=== PATIENT | female | born 2000 | race Caucasian/White ===

== ENCOUNTER 2020-09-16 21:08 | Emergency (ER) | payer OTHER, SELFPAY ==
[2020-09-16 21:10] VITALS: BP 126/71; PULSE 96; RESP 12; TEMP 36.8; O2SAT 99; BMI 22.8
[2020-09-16 21:34] LABS: COVID19 -Nasal RAPID Negative (Negative)
--- NOTE | 2020-09-16 22:03 | ED.SOB ---
HPI - SOB/Dyspnea General Chief Complaint: Shortness of Breath/Dyspnea Stated Complaint: SOB past few days Time Seen by Provider: 09/16/20 21:14 Source: patient Mode of arrival: Ambulatory Limitations: no limitations History of Present Illness HPI Narrative: 20F without significant medical history presents for gradually worsening SOB over the past 3 days. She states initially she just noticed difficulty in breathing when she you laid flat, now it is more impressive and is worse with exertion as well. Additionally, she has developed some right lower chest pain that radiates to her back. She states that sharp and stabbing and worse with deep breath. She denies any fever chills. She has had no cough. She denies nausea, vomiting or diarrhea. She has had no recent injury or travel. She denies any history of blood clot. She does take control and though she does not smoke she does vape. A few days ago she had an episode of near syncope and had an evaluation at an outside facility. She'd not eaten and only consumed two cups of coffee prior to the event. She stood up, felt dizzy and light headed and was taken via EMS. She does report a HR of the 150s which had improved prior to arrival at the ED. She had reassuring labs, EKG and felt great after IV fluids and eating. MD Complaint: shortness of breath, pain with inspiration and chest pain Onset (ago): day(s) Severity: moderate Consistency/Duration: constant Relieving factors: rest Exacerbating factors: lying flat and exertion Associated symptoms: pain with inspiration Treatment prior to arrival: none Related Data Home oxygen amount: none Previous Rx's Medication Instructions Recorded doxycycline hyclate 100 mg PO BID #20 tab 09/16/20 Allergies Allergy/AdvReac Type Severity Reaction Status Date / Time No Known Drug Allergies Allergy Verified 09/16/20 21:14 Review of Systems Constitutional Constitutional: Denies chills, Denies fatigue, Denies fever(s), Denies frequent falls, Denies lethargy and Denies weakness Eyes Eyes: Denies change in vision, Denies eye discharge, Denies irritation and Denies loss of vision ENT Ears, Nose, Mouth, and Throat: Denies change in voice, Denies dizziness, Denies neck pain, Denies sore throat and Denies throat swelling Cardiovascular Cardiovascular: Denies chest pain, Denies irregular heart rhythm, Denies lightheadedness, Denies palpitations, Reports dyspnea, Denies dyspnea on exertion and Denies orthopnea Respiratory Respiratory: Denies cough, Reports pain on inspiration, Reports dyspnea, Denies dyspnea on exertion and Denies wheezing Gastrointestinal Gastrointestinal: Denies abdominal pain, Denies change in bowel habits, Denies diarrhea, Denies nausea and Denies vomiting Musculoskeletal Musculoskeletal: Denies neck pain and Denies numbness Integumentary/Breasts Skin/Breast: Denies pruritus, Denies erythema, Denies rash and Denies wounds Neurologic Neurologic: Denies behavioral changes, Denies confusion, Denies dizziness, Denies frequent falls, Denies loss of vision, Denies numbness and Denies weakness Psychiatric Psychiatric: Denies anxiety, Denies behavioral changes, Denies confusion, Denies depression, Denies homicidal ideation and Denies suicidal ideation Endocrine Endocrine: Denies fatigue, Denies flushing and Denies palpitations Hematologic/Lymphatic Hematologic/Lymphatic: Denies easy bruising Allergic/Immunologic Allergic/Immunologic: Denies urticaria, Denies throat swelling and Denies wheezing Patient History Social History Smoking Status: Current every day smoker Smoking Status: Current every day smoker tobacco type: vaping alcohol intake frequency: holidays/special occasions only Substance Use Type: does not use Exam Narrative Exam Narrative: GENERAL: [20] year old patient appears stated age. Well-nourished, well-developed patient, in mild distress. HEAD: Atraumatic. Normocephalic. EYES: Pupils equal round and reactive. Extraocular motions intact. No scleral icterus. No injection or drainage. ENT: Nose without bleeding, purulent drainage. Throat without erythema, tonsillar hypertrophy or exudate. Airway patent. NECK: Trachea midline. Non tender CARDIOVASCULAR: Regular rate and rhythm without murmurs, gallops, or rubs. RESPIRATORY: Clear to auscultation. Breath sounds equal bilaterally. No wheezes, rales, or rhonchi. GASTROINTESTINAL: Abdomen soft, non-tender, nondistended. EXTREMITIES: No edema or joint tenderness. BACK: Nontender without deformity or crepitance. No flank tenderness. NEURO: AOx3. SKIN: No rash or erythema of visible areas Initial Vital Signs Initial Vital Signs: Vital Signs Temperature 98.2 F 09/16/20 21:10 Pulse Rate 96 H 09/16/20 21:10 Respiratory Rate 12 09/16/20 21:10 Blood Pressure 126/71 09/16/20 21:10 Pulse Oximetry 99 09/16/20 21:10 Course Orders Ordered: ED Orders 09/16/20 21:13 COVID19 Stat 09/16/20 21:17 EKG-12 Lead Stat 09/16/20 22:15 XR chest 2V Stat 09/16/20 22:28 Basic Metabolic Panel Stat Complete Blood Count AUTO DIFF Stat NT-proBNP (BNP-Adult 18+) Stat Troponin & CK Cardiac Panel Stat 09/16/20 22:50 CT angio chest PE protocol Stat Discontinued Medications Albuterol (Albuterol Hfa 200 Puff/18 Gm Inh (Covid Pos/Vent Pts)) 2 puff INH NOW ONE Stop: 09/17/20 00:29 Last Admin: 09/17/20 00:29 Dose: 2 puff Documented by: CHON Doxycycline Hyclate (Doxycycline Hyclate 100 Mg Tablet) 100 mg PO NOW ONE Stop: 09/16/20 23:56 Last Admin: 09/17/20 00:12 Dose: 100 mg Documented by: SANDRAARTIN Sodium Chloride (Normal Saline 0.9%) 1,000 mls @ 125 mls/hr IV CONT JILL Last Infusion: 09/17/20 00:35 Dose: 0 mls/hr Documented by: Admin: 09/16/20 22:34 Dose: 125 mls/hr Documented by: WENDY Vital Signs Vital signs: Vital Signs - 8 hr 09/16/20 21:10 09/16/20 22:37 09/16/20 22:38 Temperature 98.2 F Pulse Rate 96 H 83 80 Respiratory Rate 12 16 Blood Pressure 126/71 113/68 Pulse Oximetry 99 99 99 09/16/20 23:07 09/16/20 23:30 09/17/20 00:00 Temperature Pulse Rate 93 H 80 87 Respiratory Rate Blood Pressure Pulse Oximetry 100 98 98 09/17/20 00:17 09/17/20 00:29 Temperature Pulse Rate 92 H 86 Respiratory Rate 14 Blood Pressure 108/71 Pulse Oximetry 98 98 MDM - SOB/Dyspnea Lab Data Result diagrams: 09/16/20 22:28 09/16/20 22:28 Labs: Lab Results 09/16/20 09/16/20 09/16/20 Range/Units 21:13 22:28 22:28 WBC 10.1 (4.5-11.0) X10^3/uL RBC 4.83 (4.0-5.2) X10^6/uL Hgb 14.5 (12.0-16.0) g/dL Hct 41.5 (36-46) % MCV 86.0 (80-100) fL MCH 30.0 (26-34) PG MCHC 34.8 (30-36) % RDW 12.1 (11.6-14.8) % Plt Count 293 (150-400) X10^3/uL Neut % (Auto) 48.6 L (50-75) % Lymph % (Auto) 43.0 H (25-40) % [place] % (Auto) 7.3 (3-14) % Eos % (Auto) 0.3 L (2-4) % Baso % (Auto) 0.8 (0-2) % Neut # (Auto) 4900 (7517-7897) /uL Lymph # (Auto) 4300 (8609-4702) /uL [place] # (Auto) 700 (0-900) /uL Eos # (Auto) 0 (0-450) /uL Baso # (Auto) 100 (0-100) /uL Sodium 137 (137-145) mmol/L Potassium 3.7 (3.4-5.1) mmol/L Chloride 104 (98-107) mmol/L Carbon Dioxide 27 (22-32) mmol/L BUN 17 (7-17) mg/dL Creatinine 0.63 (0.52-1.04) mg/dL Estimated GFR > 60.0 (>60) mL/min BUN/Creatinine Ratio 27.0 H (6-22) Glucose 86 (70-100) mg/dL Calcium 9.8 (8.4-10.2) mg/dL Total Creatine Kinase 72 (30-135) U/L CK-MB (CK-2) TNP CK-MB (CK-2) Rel Index TNP Troponin I < 0.012 (0.01-0.034) ng/mL NT-Pro-B Natriuret Pep 41 (<125) pg/mL COVID-19 PCR Negative (Negative) Point of Care Testing Test Results Negative Urine Dip Bedside Urine Glucose Negative Bedside Urine Bilirubin - Negative Bedside Urine Ketone - Negative Urine Specific [place] 1.015 Bedside Urine Occult Blood +/- Bedside Urine pH 6.0 Bedside Urine Protein - Negative Bedside Urine Urobilinogen - Negative Bedside Urine Nitrite - Negative Bedside Urine Leukocytes - Negative Esterase Imaging Data CT scan - chest: Radiologist's Impression: No PE. Few tiny subpleural nodular densities in Right lung. Inflammatory/atypical pneumonia considered. MDM Narrative Medical decision making narrative: Pleuritic chest pain with SOB in 20F with use of vapes and birthcontrol presents with worsening symptoms. PE strongly considered, but thought less likely given lack of findings on CT. Atypical pneumonia or pneumonitis from vaping considered most likely cause upon completion of work up. Return precautions given and questions answered to her apparent satisfaction. Discharge Plan Departure Patient Disposition: Home Clinical Impression: Atypical pneumonia Instructions: DI for Atypical Pneumonia Activity Restrictions/Additional Instructions: *You have been diagnosed with [shortness of breath and sharp pain, likely due to atypical pneumonia as noted on the CT. Your COVID was negative and blood work is very reassuring] *What to do: *Take medications as directed *Follow up with your primary care provider in 2-3 days, call for an appointment. Let them know you were seen in the Emergency Department and that we ask that you be seen in follow up *Return to ER if you should have any new, worsening or concerning symptoms Prescriptions: New doxycycline hyclate 100 mg tablet 100 mg PO BID Qty: 20 RF: 0
--- NOTE | 2020-09-16 22:15 | DI.RAD.S_ITS ---
PROCEDURE: XR CHEST 2V INDICATIONS: SOB TECHNIQUE: 2 views of the chest were acquired. COMPARISON: None. FINDINGS: Surgical changes and devices: None. Lungs and pleura: Lungs are clear. No pleural effusions or pneumothorax. Mediastinum: Mediastinal contours are normal. Heart size is normal. Bones and chest wall: No suspicious bony abnormalities. Soft tissues appear unremarkable. IMPRESSION: No acute cardiopulmonary disease process. Dictated by: Ana Laura Curran MD, PhD on 09/17/2020 at 8:53 Approved by: Ana Laura Curran MD, PhD on 09/17/2020 at 9:01
[2020-09-16] MEDS: SODIUM CHLORIDE 0.9% 1,000 ML 125 ML IV (22:34)
[2020-09-16 22:37] VITALS: PULSE 83; O2SAT 99
[2020-09-16 22:38] VITALS: BP 113/68; PULSE 80; RESP 16; O2SAT 99
[2020-09-16 22:39] LABS: Add Manual Diff / Slide Review NO; Basophils Absolute Auto 100 /uL (0-100); Basophils Percent Auto 0.8 % (0-2); Eosinophils Absolute Auto 0 /uL (0-450); Eosinophils Percent Auto 0.3 % (2-4); Hematocrit 41.5 % (36-46); Hemoglobin 14.5 g/dL (12.0-16.0); Lymphocytes Absolute Auto 4300 /uL (1100-4500); Mean Corpuscular HGB Conc 34.8 % (30-36); Monocytes Absolute Auto 700 /uL (0-900); Monocytes Percent Auto 7.3 % (3-14); Neutrophils Absolute Auto 4900 /uL (1500-7000); Neutrophils Percent Auto 48.6 % (50-75); Platelet Count 293 X10^3/uL (150-400); Red Blood Cell Count 4.83 X10^6/uL (4.0-5.2); Red Cell Distribution Width 12.1 % (11.6-14.8); White Blood Cell Count 10.1 X10^3/uL (4.5-11.0)
[2020-09-16 22:45] LABS: Blood Urea Nitrogen 17 mg/dL (7-17); Calcium 9.8 mg/dL (8.4-10.2); Carbon Dioxide 27 mmol/L (22-32); Chloride 104 mmol/L (98-107); Creatine Kinase 72 U/L (30-135); Estimated Glomerular Filt Rate > 60.0 mL/min (>60); Glucose 86 mg/dL (70-100); HEMOLYSIS < 15 (0-50); Potassium 3.7 mmol/L (3.4-5.1); Sodium 137 mmol/L (137-145)
--- NOTE | 2020-09-16 22:50 | DI.CT.S_ITS ---
PROCEDURE: CT ANGIO CHEST PE PROTOCOL INDICATIONS: dyspnea, tachycardia, near syncope, PE risk factors TECHNIQUE: After the administration of intravenous contrast, 2 mm thick sections acquired from the pulmonary apices to the posterior costophrenic angles. 3-dimensional maximum intensity projection (MIP) coronal and sagittal reformats were then acquired through the thorax. For radiation dose reduction, the following was used: automated exposure control, adjustment of mA and/or kV according to patient size. COMPARISON: None. FINDINGS: Image quality: Excellent. Pulmonary arteries: Pulmonary arteries are normal in size, and demonstrate no intraluminal filling defects to suggest central pulmonary embolism. Lungs and pleura: 5 mm nodule is present in the posterior right lower lobe on series 5, image 108. No pleural effusions or pneumothorax. Central and peripheral airways are patent. Mediastinum: Heart size is normal, without pericardial effusion. No mediastinal or hilar adenopathy. Thoracic aorta is normal in caliber and enhancement. Esophagus is normal in caliber, without hiatal hernia. Bones and chest wall: No suspicious bony lesions. Ribs and thoracic spine appear intact throughout. Thyroid gland is unremarkable. Inferior to the left thyroid lobe, there is a 13 mm circumscribed focus of low attenuation, Hounsfield units measuring 4. No axillary or supraclavicular adenopathy. Abdomen: Visualized upper abdominal solid organs appear normal in the early arterial phase of enhancement. IMPRESSION: 1. No pulmonary embolism. 2. Lungs are clear. 3. 5 mm right lower lobe nodule. It is overall nonspecific. Recommend interval follow-up as below. 4. Fluid attenuation structure inferior to the left thyroid lobe. This may represent cyst. Other etiologies such as ectopic thyroid or thymic cyst should be considered. Six-month interval ultrasound follow-up is recommended. The above findings are concordant with preliminary report. Fleischner Society criteria for SOLID lung nodule followup. Nodule size (mm)Low-risk patientHigh-risk patient<6 (single or multiple)No routine followup.Optional CT at 12 months. 6-8 (single or multiple)CT at 6-12 months, then optional CT at 18-24 mo.CT at 6-12 months, then CT at 18-24 months. >8 (single)CT, PET-CT, or biopsy at 3 months. Same as for low-risk pts. >8 (multiple)CT at 3-6 months, then optional CT at 18-24 mo.CT at 3-6 months, then CT at 18-24 months. Recommendations do not apply to lung cancer screening, patients with immunosuppression, or patients with known primary cancer. The above findings are concordant with preliminary report. Dictated by: Jaqui Fraga M.D. on 09/17/2020 at 8:25 Approved by: Jaqui Fraga M.D. on 09/17/2020 at 8:46
[2020-09-16 22:57] LABS: NT-proBNP (BNP-Adult 18+) 41 pg/mL (<125); Troponin I < 0.012 ng/mL (0.01-0.034)
[2020-09-16 23:07] VITALS: PULSE 93; O2SAT 100
[2020-09-16 23:30] VITALS: PULSE 80; O2SAT 98
[2020-09-17] VITALS: PULSE 87; O2SAT 98
[2020-09-17] MEDS: DOXYCYCLINE HYCLATE 100 MG TABLET PO (00:12)
[2020-09-17 00:17] VITALS: BP 108/71; PULSE 92; O2SAT 98
[2020-09-17 00:29] VITALS: PULSE 86; RESP 14; O2SAT 98
[2020-09-17] MEDS: ALBUTEROL HFA 200 PUFF/18 GM INH (COVID POS/VENT PTS) INH (00:29)
== END 2020-09-17 00:31 | disposition home or self-care (01) ==
PROVIDERS: Emergency Provider Emergency Medicine
DX: J18.9 Pneumonia, unspecified organism (principal); R07.9 Chest pain, unspecified; R42 Dizziness and giddiness; R06.02 Shortness of breath; F17.290 Nicotine dependence, other tobacco product, uncomplicated
CPT/HCPCS: 36415; 71046; 71275; 80048; 81003; 81025; 82550; 83880; 84484; 85025; 87635; 93005; 93010; 94640; 96360; 96361; 99284; Q9967

== ENCOUNTER 2021-05-08 01:26 | Emergency (ER) | payer OTHER, SELFPAY ==
[2021-05-08 01:41] VITALS: BP 112/76; PULSE 88; RESP 15; TEMP 37.1; O2SAT 99; BMI 24.3
--- NOTE | 2021-05-08 01:50 | PC.NURSE ---
Tattoo to left upper arm with some surrounding redness, warm to touch.
--- NOTE | 2021-05-08 02:07 | ED_ITS ---
HPI - Skin/Abscess/Foreign Bdy General Chief complaint: Skin/Abscess/Foreign Body Stated complaint: thinks tattoo is infected/left arm Time Seen by Provider: 05/08/21 01:37 Source: patient Mode of arrival: Ambulatory Limitations: no limitations History of Present Illness HPI narrative: 20-year-old otherwise healthy woman presents with concerns of developing infection with a new tattoo on the left upper arm. The tattoo was done on the an on the she noted that it was more tender some mild surrounding erythema and seem to have more seepage through the design then with any of her other tattoos. It is deeply colored green but she states that she has a similar deeply colored tattoo on her leg that did not respond like this is it was healing. She has been following all instructions from the concept artist. She reports no fevers or chills. Related Data Previous Rx's Medication Instructions Recorded doxycycline hyclate 100 mg tablet 100 mg PO BID #20 tab 09/16/20 cephalexin 500 mg capsule 500 mg PO TID 5 Days #15 cap 05/08/21 Allergies Allergy/AdvReac Type Severity Reaction Status Date / Time No Known Drug Allergies Allergy Verified 09/16/20 21:14 Review of Systems Review of Systems Narrative: Remainder of complete review of systems is otherwise unremarkable except for that included in the HPI. Patient History Social History Smoking Status: Current every day smoker Smoking Status: Current every day smoker tobacco type: vaping alcohol intake frequency: holidays/special occasions only Substance Use Type: does not use Exam Narrative Exam Narrative: General: Alert appropriate in no acute distress Respiratory: Able to speak in full sentences, no obvious respiratory distress Skin: No obvious rashes, warm and dry Neurologic: Grossly intact no obvious asymmetries or abnormalities Psych: appropriate insight and affect, cooperative Extremity: [place]er tattoo on the left upper arm with mild surrounding erythema mild induration and serous seepage through attached to itself no axillary adenopathy and no lymphangitic spread appreciated Initial Vital Signs Initial Vital Signs: Vital Signs Temperature 98.8 F 05/08/21 01:41 Pulse Rate 88 05/08/21 01:41 Respiratory Rate 15 05/08/21 01:41 Blood Pressure 112/76 05/08/21 01:41 Pulse Oximetry 99 08/01/21 01:41 Course Orders Ordered: Discontinued Medications Cephalexin HCl (Cephalexin 250 Mg Capsule) 500 mg PO NOW ONE Stop: 05/08/21 02:05 Vital Signs Vital signs: Vital Signs - 8 hr 05/08/21 01:41 Temperature 98.8 F Pulse Rate 88 Respiratory Rate 15 Blood Pressure 112/76 Pulse Oximetry 99 MDM - Skin/Abscess/Foreign Bdy MDM Narrative Medical decision making narrative: Otherwise healthy 20-year-old woman with multiple tattoos reporting that this when clearly is healing differently increasing pain increasing redness. Ninety that is consistent with a developing infection rather than a sensitivity to the color or the ink itself. Will place her on 5 days of Keflex in asked her to contact the concept artist for suggestions on how to treat the skin surface itself. She is safe for home discharge Discharge Plan Departure Patient Disposition: Home Clinical Impression: Cellulitis Qualifiers: Site of cellulitis: extremity Site of cellulitis of extremity: upper extremity Laterality: left Qualified Code(s): L03.114 - Cellulitis of left upper limb Instructions: DI for Cellulitis -- Adult Activity Restrictions/Additional Instructions: Thank you for coming in tonight Think that you may be right that the tattoo in your left arm is becoming infected. I have given you a single dose of cephalexin in the emergency department and a prescription for 5 complete days Please contact your concept artist to see if he has any other suggestions on treating the surface of the skin and tattoo. I hope this heals well and I wish you the best Prescriptions: New cephalexin 500 mg capsule 500 mg PO TID 5 Days Qty: 15 RF: 0 No Action doxycycline hyclate 100 mg tablet 100 mg PO BID Qty: 20 RF: 0
[2021-05-08] MEDS: cephALEXin 250 MG CAPSULE 500 MG PO (02:09)
== END 2021-05-08 02:10 | disposition home or self-care (01) ==
PROVIDERS: Emergency Provider Emergency Medicine
DX: L03.114 Cellulitis of left upper limb (principal)
CPT/HCPCS: 99283

== ENCOUNTER 2021-07-03 16:40 | Emergency (ER) | payer OTHER, SELFPAY ==
[2021-07-03 17:25] VITALS: BP 114/63; PULSE 96; RESP 18; TEMP 36.1; O2SAT 97
[2021-07-03 17:48] LABS: COVID19 -Nasal RAPID Negative (Negative)
--- NOTE | 2021-07-03 19:26 | ED.URI ---
HPI - URI/Sore Throat General Chief Complaint: Upper Respiratory Symptoms Stated Complaint: DRY COUGH/SORE THROAT Time Seen by Provider: 07/03/21 19:23 Source: patient Mode of arrival: Ambulatory Limitations: no limitations History of Present Illness HPI Narrative: This is a 20-year-old female who comes to the emergency department with complaint of sore throat hoarse voice, pain in your right ear on evaluation. Patient states she has had about 2 days of symptoms. She had a PCR test at a walk-in clinic but take 3-5 days and she came requesting a PCR testing for COVID here for medical clearance for work. She has had a dry cough she denies chest pain or shortness of breath. She has had some mild nausea no vomiting. No issues with bowel movements or urination. No rash or skin changes. She denies fevers. She has not had any difficulty with swallowing. She denies any other medical issues. No allergies to medications. No daily medications. Related Data Allergies Allergy/AdvReac Type Severity Reaction Status Date / Time No Known Drug Allergies Allergy Verified 07/03/21 17:28 Review of Systems Review of Systems ROS Unobtainable: All systems reviewed & are unremarkable except as noted in HPI and below Patient History Social History Smoking Status: Current every day smoker Smoking Status: Current every day smoker tobacco type: vaping alcohol intake frequency: holidays/special occasions only Substance Use Type: does not use Exam Narrative Exam Narrative: GEN: well nourished, well appearing female, alert and oriented x 3, patient appears to be in mild distress. HEENT: Atraumatic, pupils are equal round reactive to light, extraocular movements are intact, nares are clear, TMs are clear with no fluid. Throat is without any exudates, mild bilateral erythema, no tonsillar enlargement, no tonsillar exudate, no uvular deviation. Patient is mildly hoarse but able to speak. No stridor. No difficulty swallowing secretions. HEART: Regular rate and rhythm without murmur, clicks, rubs. No carotid bruits, pulses are equal in upper and lower extremities LUNGS:Lungs clear to auscultation, no wheezes, rales, crackles, chest moves symmetrically ABD:bowel sounds normal, soft, non-tender, no guarding, rebound, rigidity, no masses noted, no hepatosplenomegaly MSCL: full range of motion NEURO:CN 2-12 intact, sensation normal SKIN: Rash erythema or other skin changes noted. Initial Vital Signs Initial Vital Signs: Vital Signs Temperature 97.0 F L 07/03/21 17:25 Pulse Rate 96 H 07/03/21 17:25 Respiratory Rate 18 07/03/21 17:25 Blood Pressure 114/63 07/03/21 17:25 Pulse Oximetry 97 07/03/21 17:25 Course Orders Ordered: ED Orders 07/03/21 17:32 COVID19 -Nasal swab/Pre-Proc Stat Vital Signs Vital signs: Vital Signs - 8 hr 07/03/21 17:25 Temperature 97.0 F L Pulse Rate 96 H Respiratory Rate 18 Blood Pressure 114/63 Pulse Oximetry 97 MDM - URI/Sore Throat Lab Data Labs: Lab Results 07/03/21 Range/Units 17:32 SARS-CoV-2 (PCR) Negative (Negative) MDM Narrative Medical decision making narrative: This is a 20-year-old female with what appears to be a viral pharyngitis. Patient does not need [facility] criteria at this time and my suspicion for strep is though. Patient already received a dose of dexamethasone. PCR testing for COVID here was negative. Discussed symptomatic treatment. All questions answered. Discharge Plan Departure Patient Disposition: Home Clinical Impression: Pharyngitis Instructions: DI for Pharyngitis/Tonsillopharyngitis -- Adult Activity Restrictions/Additional Instructions: Follow-up a for not having improvement in the next 7-10 days. Your PCR COVID testing today is negative. You may take Tylenol up to a 1000 mg every 8 hours and or ibuprofen up to 800 mg every 8 hours as needed for pain. Gargling with warm salt water may be helpful, you can do this several times daily. Please return for fevers greater 100.4 F, new or worsening swelling of your throat particularly on one side, muffled voice, difficulty swallowing your secretions, swelling of the neck, face right or miss or warmth, persistent vomiting, difficulty breathing or other new or concerning symptoms.
== END 2021-07-03 19:44 | disposition home or self-care (01) ==
PROVIDERS: Emergency Medicine; Emergency Provider Emergency Medicine
DX: J02.9 Acute pharyngitis, unspecified (principal); Z20.822 Contact with and (suspected) exposure to COVID-19
CPT/HCPCS: 87635; 99281; 99282; C9803